=== PATIENT | female | born 1945 | race American Indian/Alaskan Native ===

== ENCOUNTER 2020-08-14 14:56 | Observation (INO) | payer MEDICARE, OTHER ==
--- NOTE | 2020-08-14 16:28 | Event Note ---
ED Screening Note ED Screening Note: dizziness that exacerbated at 10:30 AM states it began last week her PCP diagnosed with vertigo last week and started on meclizine no CARRILLO no vision changes no CP no SOB no numbness no weakness PMHx HTN, HLD no allergies to meds non smoker This initial assessment/diagnostic orders/clinical plan/treatment(s) is/are subject to change based on patients health status, clinical progression and re- assessment by fellow clinical providers in the ED. Further treatment and workup at subsequent clinical providers discretion. Patient/guardian urged not to elope from the ED as their condition may be serious if not clinically assessed and managed. Initial orders include: labs, UA, CT head, EKG
[2020-08-14 16:52] LABS: Basophils % (Auto) 0.3 % (0.0-1.8); Eosinophils # (Auto) 0.1 K/mm3 (0.0-0.4); Eosinophils % (Auto) 0.9 % (0.0-4.3); Hematocrit 38.7 % (30.3-42.9); Lymphocytes # (Auto) 1.2 K/mm3 (1.2-5.4); Lymphocytes % (Auto) 14.5 % (13.4-35.0); Mean Corpuscular HGB Conc 34 % (30-34); Mean Corpuscular Volume 95 fl (79-97); Monocytes # (Auto) 0.2 K/mm3 (0.0-0.8); Monocytes % (Auto) 2.7 % (0.0-7.3); Platelet Count 226 K/mm3 (140-440); Red Blood Count 4.09 M/mm3 (3.65-5.03)
[2020-08-14 17:14] LABS: Alanine Aminotransferase 8 units/L (7-56); Albumin 4.1 g/dL (3.9-5); BUN/Creatinine Ratio 20; Blood Urea Nitrogen 18 mg/dL (7-17); Calcium 9.9 mg/dL (8.4-10.2); Hemolysis Index 3
--- NOTE | 2020-08-14 17:26 | Cat Scan Report ---
CT head/brain wo con INDICATION / CLINICAL INFORMATION: 74 years Female; dizziness. TECHNIQUE: Routine CT head without contrast. All CT scans at this location are performed using CT dos e reduction for ALARA by means of automated exposure control. COMPARISON: None. FINDINGS: BRAIN / INTRACRANIAL CONTENTS: There is moderate cerebral white matter disease most consistent with m icrovascular angiopathy. There is also mild cerebral atrophy. The ventricular system is corresponding ly appropriate in size and configuration. There is no clear CT evidence of acute intracranial hemorrh age or significant mass effect. ORBITS: No significant abnormality of visualized orbits. SINUSES / MASTOIDS: No significant abnormality in the visualized paranasal sinuses or mastoid air abby ls. CRANIOCERVICAL JUNCTION: No significant abnormality. ADDITIONAL FINDINGS: None. IMPRESSION: 1. 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 Signer Name: Eduar Quintero MD Signed: 08/14/2020 5:21 PM Workstation Name: [id number]
[2020-08-14 20:48] LABS: Bacteria,Urine 4+ /HPF (Negative); Bilirubin,Urine NEG (Negative); Blood,Urine MOD (Negative); Color,Urine Yellow (Yellow); Mucus,Urine 2+ /HPF
[2020-08-14] MEDS ORDERED: ONDANSETRON 4 MG/2 ML INJ IV ONE (21:52)
--- NOTE | 2020-08-14 22:04 | Emergency Department Report ---
ED Neuro Deficit HPI - General Chief Complaint: Nausea/Vomiting/Diarrhea Stated Complaint: VERTIGO Time Seen by Provider: 08/14/20 16:26 Source: patient Mode of arrival: Wheelchair Limitations: Other - History of Present Illness Initial Comments: CC: "My doctor told me that I have vertigo." HPI: This is a 74 yo female with hx of HTN, hyperlipidemia who presents with room spinning sensation. Patrobyn's PCP diagnosed patient with vertigo one month ago. THe symptoms recurred today with vomiting. No paralysis. She reports being able to walk. However, she declines to walk in the ED. NO hx of CVA. Denies headache. -: Gradual, month(s) (1 month) Location: other (dizziness) History of same: Yes Place: home Severity: severe Improves With: none Worsens With: none On Anticoagulants: No Context: gradual onset Associated Symptoms: nausea/vomiting - Related Data Home Medications: Home Medications Medication Instructions Recorded Confirmed Last Taken amLODIPine [Norvasc] 10 mg PO DAILY 11/15/13 11/15/13 Unknown Previous Rx's Medication Instructions Recorded Last Taken Type HYDROcodone/APAP 5-325 [Alpha 1 each PO Q6HR PRN #20 tablet 11/16/13 Unknown Rx 5/325] Ibuprofen [Motrin] 600 mg PO Q8H PRN #50 tablet 11/09/15 Unknown Rx traMADoL [Ultram] 50 mg PO Q6HR PRN #20 tablet 11/09/15 Unknown Rx Allergies/Adverse Reactions: Allergies Allergy/AdvReac Type Severity Reaction Status Date / Time No Known Allergies Allergy Unverified 11/15/13 21:33 ED Review of Systems ROS: Stated complaint: VERTIGO Other details as noted in HPI Comment: All other systems reviewed and negative Constitutional: denies: fever, malaise Respiratory: denies: cough, shortness of breath Gastrointestinal: nausea, vomiting. denies: abdominal pain Neurological: denies: headache, weakness, numbness, paresthesias ED Past Medical Hx - Past Medical History Previous Medical History?: Yes Hx Hypertension: Yes Additional medical history: vertigo, hyperlipidemia - Surgical History Past Surgical History?: No - Social History Smoking Status: Never Smoker Substance Use Type: None - Medications Home Medications: Home Medications Medication Instructions Recorded Confirmed Last Taken Type amLODIPine [Norvasc] 10 mg PO DAILY 11/15/13 11/15/13 Unknown History HYDROcodone/APAP 5-325 [Alpha 1 each PO Q6HR PRN #20 tablet 11/16/13 Unknown Rx 5/325] Ibuprofen [Motrin] 600 mg PO Q8H PRN #50 tablet 11/09/15 Unknown Rx traMADoL [Ultram] 50 mg PO Q6HR PRN #20 tablet 11/09/15 Unknown Rx ED Neuro Physical Exam - General Limitations: Other General appearance: alert, other (clothes covered with vomit, keeps eyes closed) Suspected Stroke: Yes - Head Head exam: Present: atraumatic, normocephalic - Eye Eye exam: Present: normal appearance - ENT ENT exam: Present: mucous membranes moist - Neck Neck exam: Present: normal inspection, full ROM - Respiratory Respiratory exam: Present: normal lung sounds bilaterally. Absent: respiratory distress, wheezes, rales, rhonchi - Cardiovascular Cardiovascular Exam: Present: regular rate, normal rhythm, normal heart sounds. Absent: systolic murmur, diastolic murmur, rubs, gallop - GI/Abdominal GI/Abdominal exam: Present: soft, normal bowel sounds. Absent: distended, tenderness, guarding, rebound - Extremities Exam Extremities exam: Present: normal inspection - Neurological Exam Neurological exam: Present: alert, oriented X3 - NIHSS Assessment Interval: Baseline 1a. Level of Consciousness: alert/keenly responsive 1b. LOC Questions: answers both correctly 1c. LOC Commands: performs tasks correctly 2. Best Gaze: normal 3. Visual: no visual loss 4. Facial Palsy: normal symmetrical movement 5b. Motor Arm Right: no drift 5a. Motor Arm Left: no drift 6a. Motor Leg Left: no drift 6b. Motor Leg Right: no drift 7. Limb Ataxia: absent 8. Sensory: normal 9. Best Language: no aphasia 10. Dysarthria: normal 11. Extinction/Inattention: no abnormality Total Score: 0 Stroke Severity: No Stroke Symptoms - Psychiatric Psychiatric exam: Present: normal affect, normal mood - Skin Skin exam: Present: warm, dry, intact, normal color. Absent: rash ED Course Vital Signs 08/14/20 08/14/20 08/14/20 15:30 20:01 20:32 Temperature 97.8 F 97.9 F Pulse Rate 64 67 71 Respiratory 20 18 16 Rate Blood Pressure 138/65 174/79 O2 Sat by Pulse 98 100 95 Oximetry 08/14/20 08/14/20 08/14/20 20:34 20:36 20:38 Temperature Pulse Rate 69 68 68 Respiratory 20 20 14 Rate Blood Pressure 159/62 159/62 159/62 O2 Sat by Pulse 95 92 94 Oximetry 08/14/20 08/14/20 08/14/20 20:40 20:46 21:00 Temperature Pulse Rate 65 65 59 L Respiratory 14 21 15 Rate Blood Pressure 159/62 159/62 159/62 O2 Sat by Pulse 94 95 94 Oximetry 08/14/20 08/14/20 21:16 21:30 Temperature Pulse Rate 62 57 L Respiratory 18 20 Rate Blood Pressure 145/60 145/60 O2 Sat by Pulse 95 94 Oximetry - Lab Data Result diagrams: 08/14/20 16:31 08/14/20 16:31 Lab Results 08/14/20 08/14/20 08/14/20 Range/Units 16:31 16:31 16:31 WBC 8.4 (4.5-11.0) K/mm3 RBC 4.09 (3.65-5.03) M/mm3 Hgb 13.0 (10.1-14.3) gm/dl Hct 38.7 (30.3-42.9) % MCV 95 (79-97) fl MCH 32 (28-32) pg MCHC 34 (30-34) % RDW 13.0 L (13.2-15.2) % Plt Count 226 (140-440) K/mm3 Lymph % (Auto) 14.5 (13.4-35.0) % [place] % (Auto) 2.7 (0.0-7.3) % Eos % (Auto) 0.9 (0.0-4.3) % Baso % (Auto) 0.3 (0.0-1.8) % Lymph # (Auto) 1.2 (1.2-5.4) K/mm3 [place] # (Auto) 0.2 (0.0-0.8) K/mm3 Eos # (Auto) 0.1 (0.0-0.4) K/mm3 Baso # (Auto) 0.0 (0.0-0.1) K/mm3 Seg Neutrophils % 81.6 H (40.0-70.0) % Seg Neutrophils # 6.9 (1.8-7.7) K/mm3 Sodium 138 (137-145) mmol/L Potassium 3.8 (3.6-5.0) mmol/L Chloride 100.9 (98-107) mmol/L Carbon Dioxide 31 H (22-30) mmol/L Anion Gap 10 mmol/L BUN 18 H (7-17) mg/dL Creatinine 0.9 (0.6-1.2) mg/dL Estimated GFR > 60 ml/min BUN/Creatinine Ratio 20 % Glucose 137 H (65-100) mg/dL Calcium 9.9 (8.4-10.2) mg/dL Magnesium 1.70 (1.7-2.3) mg/dL Total Bilirubin 0.20 (0.1-1.2) mg/dL AST 12 (5-40) units/L ALT 8 (7-56) units/L Alkaline Phosphatase 93 (35-129) units/L Total Creatine Kinase 83 (30-135) units/L Total Protein 8.1 (6.3-8.2) g/dL Albumin 4.1 (3.9-5) g/dL Albumin/Globulin Ratio 1.0 % TSH 0.562 (0.270-4.200) mlU/mL Urine Color (Yellow) Urine Turbidity (Clear) Urine pH (5.0-7.0) Ur Specific [place] (1.003-1.030) Urine Protein (Negative) mg/dL Urine Glucose (UA) (Negative) mg/dL Urine Ketones (Negative) mg/dL Urine Blood (Negative) Urine Nitrite (Negative) Urine Bilirubin (Negative) Urine Urobilinogen (<2.0) mg/dL Ur Leukocyte Esterase (Negative) Urine WBC (Auto) (0.0-6.0) /HPF Urine RBC (Auto) (0.0-6.0) /HPF U Epithel Cells (Auto) (0-13.0) /HPF Urine Bacteria (Auto) (Negative) /HPF Urine Mucus /HPF 08/14/20 Range/Units Unknown WBC (4.5-11.0) K/mm3 RBC (3.65-5.03) M/mm3 Hgb (10.1-14.3) gm/dl Hct (30.3-42.9) % MCV (79-97) fl MCH (28-32) pg MCHC (30-34) % RDW (13.2-15.2) % Plt Count (140-440) K/mm3 Lymph % (Auto) (13.4-35.0) % [place] % (Auto) (0.0-7.3) % Eos % (Auto) (0.0-4.3) % Baso % (Auto) (0.0-1.8) % Lymph # (Auto) (1.2-5.4) K/mm3 [place] # (Auto) (0.0-0.8) K/mm3 Eos # (Auto) (0.0-0.4) K/mm3 Baso # (Auto) (0.0-0.1) K/mm3 Seg Neutrophils % (40.0-70.0) % Seg Neutrophils # (1.8-7.7) K/mm3 Sodium (137-145) mmol/L Potassium (3.6-5.0) mmol/L Chloride (98-107) mmol/L Carbon Dioxide (22-30) mmol/L Anion Gap mmol/L BUN (7-17) mg/dL Creatinine (0.6-1.2) mg/dL Estimated GFR ml/min BUN/Creatinine Ratio % Glucose (65-100) mg/dL Calcium (8.4-10.2) mg/dL Magnesium (1.7-2.3) mg/dL Total Bilirubin (0.1-1.2) mg/dL AST (5-40) units/L ALT (7-56) units/L Alkaline Phosphatase (35-129) units/L Total Creatine Kinase (30-135) units/L Total Protein (6.3-8.2) g/dL Albumin (3.9-5) g/dL Albumin/Globulin Ratio % TSH (0.270-4.200) mlU/mL Urine Color Yellow (Yellow) Urine Turbidity Turbid (Clear) Urine pH 6.0 (5.0-7.0) Ur Specific [place] 1.016 (1.003-1.030) Urine Protein 30 mg/dl (Negative) mg/dL Urine Glucose (UA) Neg (Negative) mg/dL Urine Ketones Tr (Negative) mg/dL Urine Blood Mod (Negative) Urine Nitrite Neg (Negative) Urine Bilirubin Neg (Negative) Urine Urobilinogen 2.0 (<2.0) mg/dL Ur Leukocyte Esterase Mod (Negative) Urine WBC (Auto) 40.0 H (0.0-6.0) /HPF Urine RBC (Auto) 74.0 (0.0-6.0) /HPF U Epithel Cells (Auto) 2.0 (0-13.0) /HPF Urine Bacteria (Auto) 4+ (Negative) /HPF Urine Mucus 2+ /HPF - EKG Data -: EKG Interpreted by Me EKG shows normal: sinus rhythm, axis, intervals, ST-T waves Rate: normal Interpretation: nonspecific ST-T wave florentin, LVH 08/14/20 22:05 EKG obtained 1541 EKG interpreted by me Normal sinus rhythm rate 60 bpm normal axis normal intervals no ST-T signs i schemia nonspecific T wave pattern U waves present aVL LVH criteria - Radiology Data Radiology results: report reviewed, image reviewed Findings Reporting MD: Eduar Quintero Dictation Time: August 14, 2020 16:21 Lead Pharmacy Technician: Not available Bat Person Date: CT head/brain wo con INDICATION / CLINICAL INFORMATION: 74 years Female; dizziness. TECHNIQUE: Routine CT head without contrast. All CT scans at this location are performed using CT dose reduction for ALARA by means of automated exposure control. COMPARISON: None. FINDINGS: BRAIN / INTRACRANIAL CONTENTS: There is moderate cerebral white matter disease most consistent with microvascular angiopathy. There is also mild cerebral atrophy. The ventricular system is correspondingly appropriate in size and configuration. There is no clear CT evidence of acute intracranial hemorrhage or significant mass effect. ORBITS: No significant abnormality of visualized orbits. SINUSES / MASTOIDS: No significant abnormality in the visualized paranasal sinuses or mastoid air cells. CRANIOCERVICAL JUNCTION: No significant abnormality. ADDITIONAL FINDINGS: None. IMPRESSION: 1. 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 - Medical Decision Making Patrick is a 74-year-old female with history of hypertension hyperlipidemia who has persistent vertigo since 10:30 AM today. Considering patient has had severe symptoms and cardiovascular risk factors of hypertension lipidemia, I have concern for posterior circulation CVA. She is admitted to the hospital service for further treatment evaluation. Patient is not a TPA candidate considering onset of symptoms. Aspirin given in the emergency department. CBC chemistry with normal limits. Urinalysis positive for infection. Critical care attestation.: If time is entered above; I have spent that time in minutes in the direct care of this critically ill patient, excluding procedure time. ED Disposition Clinical Impression: Acute CVA (cerebrovascular accident), Vertigo, central Disposition: DC-09 OP ADMIT IP TO THIS HOSP Is pt being admited?: Yes Does the pt Need Aspirin: No Condition: Stable
[2020-08-14] MEDS ORDERED: cefTRIAXone/NS 1 GM/50 ML 1 GM/50 ML BAG IV ONE (22:06)
[2020-08-14] MEDS ORDERED: ASPIRIN 81 MG TAB CHEW PO ONE (22:07)
[2020-08-14] MEDS ORDERED: traMADol 50 MG TAB PO PRN (22:25)
[2020-08-14] MEDS ORDERED: IBUPROFEN 600 MG TAB PO PRN (22:25)
--- NOTE | 2020-08-14 22:34 | History and Physical Report ---
History of Present Illness Date of examination: 08/14/20 Date of admission: 08/14/20 Chief complaint: Vertigo Nausea vomiting diarrhea History of present illness: 4 yo female with hx of HTN, hyperlipidemia was brought to the emergency room with room spinning sensation. Timothy's PCP diagnosed patient with vertigo one month ago. THe symptoms recurred today with vomiting. No paralysis. She reports being able to walk. However, she declines to walk in the ED. NO hx of CVA. Initial CT scan of the head showed There is moderate microvascular angiopathy and mild cerebral atrophy without CT evidence of acute intracranial hemorrhage. Past History Past Medical History: hypertension, hyperlipidemia Medications and Allergies Allergies Allergy/AdvReac Type Severity Reaction Status Date / Time No Known Allergies Allergy Unverified 11/15/13 21:33 Home Medications Medication Instructions Recorded Confirmed Last Taken Type amLODIPine [Norvasc] 10 mg PO DAILY 11/15/13 11/15/13 Unknown History HYDROcodone/APAP 5-325 [[place] 1 each PO Q6HR PRN #20 tablet 11/16/13 Unknown Rx 5/325] Ibuprofen [Motrin] 600 mg PO Q8H PRN #50 tablet 11/09/15 Unknown Rx traMADoL [Ultram] 50 mg PO Q6HR PRN #20 tablet 11/09/15 Unknown Rx Active Meds: Active Medications Amlodipine Besylate (Amlodipine 10 Mg Tab) 10 mg PO DAILY CRISTINA Ceftriaxone Sodium (Rocephin/Ns 1 Gm/50 Ml) 1 gm in 50 mls @ 100 mls/hr IV ONCE ONE; Protocol Stop: 08/14/20 22:35 Last Admin: 08/14/20 22:19 Dose: 100 mls/hr Documented by: Ibuprofen (Ibuprofen 600 Mg Tab) 600 mg PO Q8H PRN PRN Reason: PAIN (1-3) Tramadol HCl (Tramadol 50 Mg Tab) 50 mg PO Q6H PRN PRN Reason: Pain, Moderate (4-6) Review of Systems Neurological: vertigo Exam - Constitutional Vitals: Temp Pulse Resp BP Pulse Ox 97.9 F 57 L 20 145/60 94 08/14/20 20:01 08/14/20 21:30 08/14/20 21:30 08/14/20 21:30 08/14/20 21:30 General appearance: Present: no acute distress, well-nourished - EENT Eyes: Present: PERRL ENT: hearing intact, clear oral mucosa - Neck Neck: Present: supple, normal ROM - Respiratory Respiratory effort: normal Respiratory: bilateral: CTA - Cardiovascular Heart Sounds: Present: S1 & S2. Absent: rub, click - Extremities Extremities: pulses symmetrical, No edema Peripheral Pulses: within normal limits - Abdominal General gastrointestinal: Present: soft, non-tender, non-distended, normal bowel sounds Female genitourinary: Present: normal - Integumentary Integumentary: Present: clear, warm, dry - Musculoskeletal Musculoskeletal: gait normal, strength equal bilaterally - Psychiatric Psychiatric: appropriate mood/affect, intact judgment & insight - Neurologic Neurologic: CNII-XII intact, moves all extremities Results - Labs CBC & Chem 7: 08/14/20 16:31 08/14/20 16:31 Labs: Laboratory Last Values WBC 8.4 K/mm3 (4.5-11.0) 08/14/20 16:31 RBC 4.09 M/mm3 (3.65-5.03) 08/14/20 16:31 Hgb 13.0 gm/dl (10.1-14.3) 08/14/20 16:31 Hct 38.7 % (30.3-42.9) 08/14/20 16:31 MCV 95 fl (79-97) 08/14/20 16:31 MCH 32 pg (28-32) 08/14/20 16:31 MCHC 34 % (30-34) 08/14/20 16:31 RDW 13.0 % (13.2-15.2) L 08/14/20 16:31 Plt Count 226 K/mm3 (140-440) 08/14/20 16:31 Lymph % (Auto) 14.5 % (13.4-35.0) 08/14/20 16:31 [place] % (Auto) 2.7 % (0.0-7.3) 08/14/20 16:31 Eos % (Auto) 0.9 % (0.0-4.3) 08/14/20 16:31 Baso % (Auto) 0.3 % (0.0-1.8) 08/14/20 16:31 Lymph # (Auto) 1.2 K/mm3 (1.2-5.4) 08/14/20 16:31 [place] # (Auto) 0.2 K/mm3 (0.0-0.8) 08/14/20 16:31 Eos # (Auto) 0.1 K/mm3 (0.0-0.4) 08/14/20 16:31 Baso # (Auto) 0.0 K/mm3 (0.0-0.1) 08/14/20 16:31 Seg Neutrophils % 81.6 % (40.0-70.0) H 08/14/20 16:31 Seg Neutrophils # 6.9 K/mm3 (1.8-7.7) 08/14/20 16:31 Sodium 138 mmol/L (137-145) 08/14/20 16:31 Potassium 3.8 mmol/L (3.6-5.0) 08/14/20 16:31 Chloride 100.9 mmol/L (98-107) 08/14/20 16:31 Carbon Dioxide 31 mmol/L (22-30) H 08/14/20 16:31 Anion Gap 10 mmol/L 08/14/20 16:31 BUN 18 mg/dL (7-17) H 08/14/20 16:31 Creatinine 0.9 mg/dL (0.6-1.2) 08/14/20 16:31 Estimated GFR > 60 ml/min 08/14/20 16:31 BUN/Creatinine Ratio 20 % 08/14/20 16:31 Glucose 137 mg/dL (65-100) H 08/14/20 16:31 Calcium 9.9 mg/dL (8.4-10.2) 08/14/20 16:31 Magnesium 1.70 mg/dL (1.7-2.3) 08/14/20 16:31 Total Bilirubin 0.20 mg/dL (0.1-1.2) 08/14/20 16:31 AST 12 units/L (5-40) 08/14/20 16:31 ALT 8 units/L (7-56) 08/14/20 16:31 Alkaline Phosphatase 93 units/L (35-129) 08/14/20 16:31 Total Creatine Kinase 83 units/L (30-135) 08/14/20 16:31 Total Protein 8.1 g/dL (6.3-8.2) 08/14/20 16:31 Albumin 4.1 g/dL (3.9-5) 08/14/20 16:31 Albumin/Globulin Ratio 1.0 % 08/14/20 16:31 TSH 0.562 mlU/mL (0.270-4.200) 08/14/20 16:31 Urine Color Yellow (Yellow) 08/14/20 Unknown Urine Turbidity Turbid (Clear) 08/14/20 Unknown Urine pH 6.0 (5.0-7.0) 08/14/20 Unknown Ur Specific [place] 1.016 (1.003-1.030) 08/14/20 Unknown Urine Protein 30 mg/dl mg/dL (Negative) 08/14/20 Unknown Urine Glucose (UA) Neg mg/dL (Negative) 08/14/20 Unknown Urine Ketones Tr mg/dL (Negative) 08/14/20 Unknown Urine Blood Mod (Negative) 08/14/20 Unknown Urine Nitrite Neg (Negative) 08/14/20 Unknown Urine Bilirubin Neg (Negative) 08/14/20 Unknown Urine Urobilinogen 2.0 mg/dL (<2.0) 08/14/20 Unknown Ur Leukocyte Esterase Mod (Negative) 08/14/20 Unknown Urine WBC (Auto) 40.0 /HPF (0.0-6.0) H 08/14/20 Unknown Urine RBC (Auto) 74.0 /HPF (0.0-6.0) 08/14/20 Unknown U Epithel Cells (Auto) 2.0 /HPF (0-13.0) 08/14/20 Unknown Urine Bacteria (Auto) 4+ /HPF (Negative) 08/14/20 Unknown Urine Mucus 2+ /HPF 08/14/20 Unknown - Imaging and Cardiology CT Scan - head: image reviewed Assessment and Plan VTE prophylaxis?: Chemical Plan of care discussed with patient/family: Yes - Patient Problems (1) Vertigo, central Current Visit: Yes Status: Acute Plan to address problem: Admit the patient to the medical telemetry. Meclizine 25 mg p.o. every 8 hours as needed. Will do MRI of the brain, carotid duplex and echocardiogram. We also consult physical therapy occupational therapy and speech evaluation. Please consult neurology in the morning for further evaluation and treatment (2) Acute CVA (cerebrovascular accident) Current Visit: Yes Status: Acute Plan to address problem: Put the patient on a stroke pathway. Aspirin 325 mg p.o. daily. Lipitor 40 mg p.o. daily. MRI of the brain with and without contrast. Carotid duplex and echocardiogram. Will consult PT OT any speech evaluation. Consult neurology in the morning for further evaluation and treatment (3) Hypertension Current Visit: Yes Status: Acute Plan to address problem: Hydralazine 10 mg IV every 6 hours as needed. We also continue the home medication. (4) Hyperlipidemia Current Visit: Yes Status: Acute Plan to address problem: Lipitor 40 mg p.o. daily. We will recheck the lipid panel in the morning (5) DVT prophylaxis Current Visit: Yes Status: Acute Plan to address problem: Heparin 5000 units subcu every 8 hours for DVT prophylaxis and Protonix 40 mg p.o. daily for GI prophylaxis. Patient is a full code
[2020-08-14] MEDS ORDERED: hydrALAZINE 20 MG/1 ML INJ IV PRN (22:39)
[2020-08-14] MEDS ORDERED: MECLIZINE 25 MG TAB PO PRN (22:40)
[2020-08-15 06:36] LABS: Chol/HDL Ratio 2.9 %
[2020-08-15] MEDS: HEPARIN 5,000 UNIT/1 ML VIAL SUB-Q SCH ×3 (07:16→22:14)
[2020-08-15] MEDS: PANTOPRAZOLE 40 MG TAB PO SCH (09:17)
[2020-08-15] MEDS: ASPIRIN 325 MG TAB PO SCH (09:17)
[2020-08-15] MEDS: amLODIPine 10 MG TAB PO SCH (09:18)
[2020-08-15] MEDS ORDERED: FLU VACC QUAD 2020-2021 (6 months +)/PF 60 0.5 ML SYRINGE IM ONE (12:00)
--- NOTE | 2020-08-15 12:09 | Electrocardiograph Report ---
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
--- NOTE | 2020-08-15 12:29 | Vascular Lab Report ---
DUPLEX DOPPLER ULTRASOUND CAROTID, BILATERAL INDICATION / CLINICAL INFORMATION: stroke. COMPARISON: None available. FINDINGS: [id number] plaque in bilateral carotid bifurcations and internal carotid arteries. RIGHT CAROTID: - PLAQUE ESTIMATE (%): < 50% - CCA velocity: 107 cm/sec. - ICA peak systolic velocity: 77 cm/sec. - ICA/CCA PSV Ratio: 0.7 Right Vertebral Artery: Antegrade flow. LEFT CAROTID: - PLAQUE ESTIMATE: < 50% - CCA velocity: 106 cm/sec. - ICA peak systolic velocity: 87 cm/sec. - ICA/CCA PSV Ratio: 0.8 Left Vertebral Artery: Antegrade flow. IMPRESSION: 1. Right Internal Carotid Artery: Less than 50% diameter stenosis. 2. Left Internal Carotid Artery: Less than 50% diameter stenosis. 3. [id number] plaque in bilateral carotid arteries. Velocity criteria are extrapolated from diameter data as defined by the Society of Radiologists in [place] [employer] Consensus Conference, Radiology 2003; 229;340-346. NO STENOSIS (NORMAL) * Plaque = none; ICA PSV < 125 cm/sec; ICA/CCA PSV Ratio < 2.0 <50% STENOSIS * Plaque < 50%; ICA PSV < 125 cm/sec; ICA/CCA PSV Ratio < 2.0 50-69% STENOSIS * Plaque > 50%; ICA PSV = 125-230 cm/sec; ICA/CCA PSV Ratio = 2.0-4.0 >70% BUT <100% STENOSIS * Plaque > 50%; ICA PSV > 230 cm/sec; ICA/CCA PSV Ratio > 4.0 NEAR OCCLUSION * Plaque = visible lumen; ICA PSV = high/low/none; ICA/CCA PSV Ratio = variable TOTAL OCCLUSION * Plaque = no lumen; ICA PSV = none; ICA/CCA PSV Ratio = N/A Signer Name: Saurabh Dougherty MD Signed: 08/15/2020 12:25 PM Workstation Name: [id number]
--- NOTE | 2020-08-15 13:19 | Progress Note ---
Assessment and Plan (1) Vertigo, central Current Visit: Yes Status: Acute Plan to address problem: Admit the patient to the medical telemetry. Meclizine 25 mg p.o. every 8 hours as needed. Will do MRI of the brain, carotid duplex and echocardiogram. We also consult physical therapy occupational therapy and speech evaluation. Please consult neurology in the morning for further evaluation and treatment (2) possible acute CVA (cerebrovascular accident) Current Visit: Yes Status: Acute Plan to address problem: Put the patient on a stroke pathway. Aspirin 325 mg p.o. daily. Lipitor 40 mg p.o. daily. MRI of the brain with and without contrast. Carotid duplex and echocardiogram. Will consult PT OT any speech evaluation. Consult neurology in the morning for further evaluation and treatment (3) Hypertension Current Visit: Yes Status: Acute Plan to address problem: Hydralazine 10 mg IV every 6 hours as needed. We also continue the home medication. (4) Hyperlipidemia Current Visit: Yes Status: Acute Plan to address problem: Lipitor 40 mg p.o. daily. We will recheck the lipid panel in the morning (5) DVT prophylaxis Current Visit: Yes Status: Acute Plan to address problem: Heparin 5000 units subcu every 8 hours for DVT prophylaxis and Protonix 40 mg p.o. daily for GI prophylaxis. Patient is a full code Daily clinical course: 08/15: Pending MRI and 2D echo result, pending PT eval. Wait for neurology recommendation, follow clinically Subjective Date of service: 08/15/20 Interval history: Patient seen and examined. Medical records and medication list reviewed. No acute event overnight noted by the RN. Patient denies any chest pain or difficulty breathing. Patient is tolerating diet. Patient still complains of lightheadedness on ambulation Discussed plan of care at bedside with patient. Objective - Exam Narrative Exam: GENERAL: well-developed elderly -[place] female lying on bed appeared to be in no discomfort. HEENT: Normocephalic. Atraumatic. No conjunctival congestion or icterus. Patient has moist mucous membranes. NECK: Supple. Trachea midline. CHEST/LUNGS: Clear to auscultated bilaterally, breathing nonlabored. No wheezes crackles or rhonchi. HEART/CARDIOVASCULAR: Regular in rate and rhythm. S1 and S2 positive. ABDOMEN: Abdomen is soft, nontender. Patient has normal bowel sounds. SKIN: There is no rash. Warm and dry. NEURO: No focal motor deficit. Follows command. MUSCULOSKELETAL: No joint effusion or tenderness. EXTRIMITY: No edema, no cyanosis or clubbing. PSYCH: Cooperative. - Constitutional Vitals: Vital Signs - 12hr 08/15/20 08/15/20 08/15/20 04:33 08:16 08:25 Temperature 98.6 F Pulse Rate 63 54 L 79 Pulse Rate [ Left Radial] Pulse Rate [ Right Radial] Respiratory 16 Rate Blood Pressure 123/54 155/69 O2 Sat by Pulse 97 96 Oximetry 08/15/20 08/15/20 08/15/20 09:18 10:00 12:44 Temperature Pulse Rate 80 63 Pulse Rate [ 80 Left Radial] Pulse Rate [ 80 Right Radial] Respiratory 19 Rate Blood Pressure 155/69 119/56 O2 Sat by Pulse 99 97 Oximetry - Labs CBC & Chem 7: 08/14/20 16:31 08/14/20 16:31 Labs: Abnormal lab results 08/14/20 08/14/20 08/14/20 Range/Units 16:31 16:31 Unknown RDW 13.0 L (13.2-15.2) % Seg Neutrophils % 81.6 H (40.0-70.0) % Carbon Dioxide 31 H (22-30) mmol/L BUN 18 H (7-17) mg/dL Glucose 137 H (65-100) mg/dL Urine WBC (Auto) 40.0 H (0.0-6.0) /HPF
--- NOTE | 2020-08-15 13:50 | Magnetic Resonance Report ---
MR brain wo con INDICATION / CLINICAL INFORMATION: Stroke. Vertigo.. TECHNIQUE: Multiplanar, multisequence MR images of the brain were obtained. COMPARISON: December 14, 2020 FINDINGS: INTRACRANIAL: No restricted diffusion. No hemorrhage. Ventricular caliber is normal. No extra-axial c ollection. No mass. No herniation. Moderate quantity of periventricular and centrum semiovale T2 whi te matter hyperintensities most consistent with sequela of chronic microvascular disease, similar to prior study. Major intracranial vascular flow voids are preserved. ORBITS: No significant abnormality of visualized orbits. SINUSES / MASTOIDS: No significant abnormality of visualized sinuses and mastoid air cells. ADDITIONAL FINDINGS: None. IMPRESSION: 1. No acute infarction. 2. Moderate sequela of chronic microvascular disease. Signer Name: Sid Newsome MD Signed: 08/15/2020 1:45 PM Workstation Name: [id number]
[2020-08-16] MEDS: HEPARIN 5,000 UNIT/1 ML VIAL SUB-Q SCH (05:43)
[2020-08-16 09:36] VITALS: BP 124/60
--- NOTE | 2020-08-16 10:54 | Magnetic Resonance Report ---
The study was specified as stat and dictated on an emergent basis at 9:48 AM Central standard time. INDICATION / CLINICAL INFORMATION: 74 years Female; Neoplasm. TECHNIQUE: Multiplanar postcontrast MR images of the brain were obtained. COMPARISON: The study is compared to the previous noncontrast study of 08/15/2020. FINDINGS: On the previous noncontrast study, there was note of extensive microvascular angiopathy. The motion d egrades image quality. However, the additional postcontrast imaging on today's study reveals no corre sponding intracranial enhancing lesions. The ventricular system is unchanged in size and configuratio n. IMPRESSION: 1. Additional postcontrast imaging reveals no evidence of intracranial enhancing lesions. Correlation would be needed given the emergent presentation and history of unspecified "neoplasm". Signer Name: Eduar Quintero MD Signed: 08/16/2020 10:49 AM Workstation Name: [id number]
[2020-08-16] MEDS: amLODIPine 10 MG TAB PO SCH (12:24)
[2020-08-16] MEDS: ASPIRIN 325 MG TAB PO SCH (12:24)
[2020-08-16] MEDS: PANTOPRAZOLE 40 MG TAB PO SCH (12:24)
--- NOTE | 2020-08-16 14:10 | Discharge Summary ---
Providers - Providers Date of Admission: 08/14/20 22:09 Date of discharge: 08/16/20 Attending physician: TAMEKA GARCIA 08/14/20 22:26 Occupational Therapy Evaluate and Treat [CONS] Routine Comment: Reason For Exam: Neuro deficits Physical Therapy Evaluation and Treat [CONS] Routine Comment: Reason For Exam: Neuro deficits 08/15/20 10:43 Consult to Physician [CONS] Routine Comment: Consulting Provider: ALYSSA OLVERA Physician Instructions: Reason For Exam: vertigo 08/16/20 09:34 Physical Therapy Evaluation and Treat [CONS] Routine Comment: OUTPATIENT PHYSICAL THERAPY Reason For Exam: NEURO DEFICITS Primary care physician: CORE DIPPER Hospitalization Condition: Stable Disposition: DC-01 TO HOME OR SELFCARE Final Discharge Diagnosis (Prints w/discharge instructions): Central vertigo, CVA ruled out, hypertension, hyperlipidemia. Time spent for discharge: 34 minutes Core Measure Documentation - Palliative Care Palliative Care/ Comfort Measures: Not Applicable - Core Measures Any of the following diagnoses?: none Exam - Physical Exam Narrative exam: GENERAL: well-developed elderly -Citizen Of [place] female lying on bed appeared to be in no discomfort. HEENT: Normocephalic. Atraumatic. No conjunctival congestion or icterus. Patient has moist mucous membranes. NECK: Supple. Trachea midline. CHEST/LUNGS: Clear to auscultated bilaterally, breathing nonlabored. No wheezes crackles or rhonchi. HEART/CARDIOVASCULAR: Regular in rate and rhythm. S1 and S2 positive. ABDOMEN: Abdomen is soft, nontender. Patient has normal bowel sounds. SKIN: There is no rash. Warm and dry. NEURO: No focal motor deficit. Follows command. MUSCULOSKELETAL: No joint effusion or tenderness. EXTRIMITY: No edema, no cyanosis or clubbing. PSYCH: Cooperative. - Constitutional Vitals: Temp Pulse Resp BP Pulse Ox 98.4 F 68 18 124/60 100 08/16/20 08:15 08/16/20 12:24 08/16/20 08:15 08/16/20 08:17 08/16/20 10:09 Plan Activity: advance as tolerated Weight Bearing Status: Weight Bear as Tolerated Diet: low fat Additional Instructions: Follow-up with your primary care physician in 1 week Follow up with: PRIMARY CAREMD [Primary Care Provider] - 7 Days Prescriptions: Meclizine [Antivert] 25 mg PO Q8H PRN #30 tablet PRN Reason: Vertigo Aspirin EC [Halfprin EC] 81 mg PO QDAY #30 tablet. Pantoprazole [Protonix TAB] 40 mg PO QDAC #30 tablet
--- NOTE | 2020-08-16 14:17 | Consultation ---
History of Present Illness Consult date: 08/16/20 Reason for Consult: Vertigo Chief complaint: Transient Vertigo History of present illness: 74 yo female with htn, hld, presenting with a 1-hour episode of vertigo. Recent episode of vertigo that occurred last month. Currently at baseline. Past History Past Medical History: hypertension, hyperlipidemia Medications and Allergies Allergies Allergy/AdvReac Type Severity Reaction Status Date / Time No Known Allergies Allergy Unverified 11/15/13 21:33 Home Medications Medication Instructions Recorded Confirmed Last Taken Type amLODIPine 10 mg PO DAILY 11/15/13 08/15/20 08/15/20 10:05 History traMADoL [Ultram 50 MG tab] 50 mg PO Q6HR PRN #20 tablet 11/09/15 08/15/20 08/14/20 Rx Aspirin EC [Halfprin EC] 81 mg PO QDAY #30 tablet. 08/16/20 Unknown Rx Meclizine [Antivert] 25 mg PO Q8H PRN #30 tablet 08/16/20 Unknown Rx Pantoprazole [Protonix TAB] 40 mg PO QDAC #30 tablet 08/16/20 Unknown Rx Active Meds: Active Medications Amlodipine Besylate (Amlodipine 10 Mg Tab) 10 mg PO DAILY [facility] Last Admin: 08/16/20 12:24 Dose: 10 mg Documented by: Aspirin (Aspirin 325 Mg Tab) 325 mg PO QDAY [facility] Last Admin: 08/16/20 12:24 Dose: 325 mg Documented by: Atorvastatin Calcium (Atorvastatin 40 Mg Tab) 40 mg PO QHS [facility] Last Admin: 08/15/20 22:14 Dose: 40 mg Documented by: Heparin Sodium (Porcine) (Heparin 5,000 Unit/1 Ml Vial) 5,000 unit SUB-Q Q8HR [facility] Last Admin: 08/16/20 05:43 Dose: 5,000 unit Documented by: Hydralazine HCl (Hydralazine 20 Mg/1 Ml Inj) 10 mg IV Q6H PRN PRN Reason: htn Ibuprofen (Ibuprofen 600 Mg Tab) 600 mg PO Q8H PRN PRN Reason: PAIN (1-3) Labetalol HCl (Labetalol 20 Mg/4 Ml Inj) 10 mg IV Q5MIN PRN PRN Reason: to maintain SBP < 180 Meclizine HCl (Meclizine 25 Mg Tab) 25 mg PO Q8H PRN PRN Reason: Vertigo Pantoprazole Sodium (Pantoprazole 40 Mg Tab) 40 mg PO QDAC [facility] Last Admin: 08/16/20 12:24 Dose: 40 mg Documented by: Sodium Chloride (Sodium Chloride 0.9% 10 Ml Flush Syringe) 10 ml IV PRN PRN PRN Reason: LINE FLUSH Tramadol HCl (Tramadol 50 Mg Tab) 50 mg PO Q6H PRN PRN Reason: Pain, Moderate (4-6) Review of Systems All systems: negative (as per HPI;) Physical Examination - Vital Signs Vital Signs: Vital Signs Temp Pulse Resp BP Pulse Ox 97.8 F 64 20 138/65 98 08/14/20 15:30 08/14/20 15:30 08/14/20 15:30 08/14/20 15:30 08/14/20 15:30 - Physical Exam Narrative exam: Gen: nad, well-nourished; Head: normocephalic; Eyes: no gaze deviation; no ptosis; ENT: normal vocalization; CVS: warm and well-perfused; Pulm: no respiratory distress; GI: appears non-distended, protuberant; Ext: no cyanosis at distal extremities; Skin: no acute rash at distal extremities; Heme: no pathologic bruising at distal extremities; Neuro: alert, oriented to name, age, month, year, surroundings, no dysarthria, no aphasia, CN 2 - PERRL, visual ward grossly intact, CN 3, 4, 6 - EOMI, CN 5 - facial sensation symmetric to light touch, CN 7 - facial movement symmetric, CN 8 - hearing grossly intact, CN 9, 10 - uvula midline, CN 11 - shrug symmetric, CN 12 - tongue midline; Motor - at least 4/5 in all exts; Sensory - light touch symmetric, Cerebellar - fnf /hts intact, Gait - deferred secondary to fall risk; Results - Laboratory Findings CBC and BMP: 08/14/20 16:31 08/14/20 16:31 Abnormal Lab Findings: Abnormal Labs 08/14/20 08/14/20 08/14/20 16:31 16:31 Unknown RDW 13.0 L Seg Neutrophils % 81.6 H Carbon Dioxide 31 H BUN 18 H Glucose 137 H Urine WBC (Auto) 40.0 H Assessment and Plan 74 yo female with htn, hld p/w likely peripheral vertigo. Recommend followup with ENT; agree with Meclizine 25 tid prn vertigo. Jonas Grossman MD Neurology
== END 2020-08-16 17:55 | disposition home or self-care (01) ==
LOC: ED 14:56 → 4A 22:09
PROVIDERS: ADMIT Hospitalist; ATTEND Internal Medicine
DX: I63.9 Cerebral infarction, unspecified (principal); I10 Essential (primary) hypertension; H81.4 Vertigo of central origin; E78.5 Hyperlipidemia, unspecified; R29.700 NIHSS score 0; M62.81 Muscle weakness (generalized); Z79.899 Other long term (current) drug therapy
CPT/HCPCS: 36415; 70450; 70551; 70552; 80053; 80061; 81001; 82550; 82962; 83036; 83735; 84443; 85025; 87086; 93005; 93306; 93880; 96365; 96372; 96375; 97162; 97165; 99285; A9270; A9575; G0378; J0696; J1644; J2405; 90686